=== PATIENT | female | born 1985 | race Hispanic/Latino ===

== ENCOUNTER 2022-02-01 13:24 | Emergency (ER) | payer SELFPAY ==
[~2022-02-01] VITALS: Ht 157.5 cm; Wt 59.0 kg
[2022-02-01 13:54] LABS: BASOPHILS % 0.1 % (0.0-1.0); EOSINOPHILS % 0.5 % (0.0-6.0); HEMATOCRIT 37.4 % (34.2-44.1); HEMOGLOBIN 12.3 g/dL (12.0-16.0); LYMPHOCYTES # (AUTO) 2.6 (1.0-3.2); LYMPHOCYTES % 31.5 % (18.0-39.1); MEAN CORPUSCULAR HEMOGLOBIN 31.2 pg (28-32); MEAN CORPUSCULAR HGB CONC 32.9 g/dL (31-35); MEAN CORPUSCULAR VOLUME 94.9 fL (81-99); MONOCYTES # (AUTO) 0.5 (0.2-0.8); MONOCYTES % 6.6 % (4.4-11.3); NEUTROPHILS % 61.2 % (38.7-80.0); PLATELET COUNT 274 x10e3/uL (140-360); RED BLOOD COUNT 3.94 x10e6/uL (3.6-5.1); RED CELL DISTRIBUTION WIDTH 11.5 % (11.7-14.4)
[2022-02-01 14:19] LABS: CLARITY,URINE TURBID (CLEAR); COLOR,URINE YELLOW (YELLOW)
[2022-02-01 14:20] LABS: KETONES,URINE TRACE (NEGATIVE); LEUKOCYTE ESTERASE ,URINE NEGATIVE (NEGATIVE); NITRITE,URINE NEGATIVE (NEGATIVE); PROTEIN,URINE DIPSTICK NEGATIVE (NEGATIVE); URINE UROBILINOGEN 0.2 mg/dL (0.2 - 1)
[2022-02-01 14:23] LABS: ALBUMIN 3.9 g/dL (3.5-5.0); ALBUMIN/GLOBULIN RATIO 1.1 (0.8-2.0); ANION GAP 12.2 mmol/L (8-16); BACTERIA,URINE FEW /HPF; CALCIUM 8.8 mg/dL (8.4-10.2); CREATININE, SERUM 0.68 mg/dL (0.57-1.11); EPITHELIAL CELLS,URINE FEW /LPF; MUCUS,URINE MODERATE (RARE); POTASSIUM 3.2 mmol/L (3.5-5.1); RBC,URINE 0-5 /HPF (0-5)
[2022-02-01] MEDS ORDERED: IOPAMIDOL 370 MG/ML 100 ML INFUS..BTL INJ ONE (14:58)
[2022-02-01] MEDS ORDERED: IBUPROFEN600 MG PO (15:38)
== END 2022-02-01 16:27 | disposition home or self-care (01) ==
LOC: ER 13:32
DX: R10.31 Right lower quadrant pain (principal)
CPT/HCPCS: 36415; 74177; 80053; 81001; 81025; 83690; 85025; 99284; Q9967